=== PATIENT | male | born 1975 | race Two or more races ===

== ENCOUNTER → 2021-07-11 | Outpatient (CLI) | payer BC ==
--- NOTE | 2021-07-12 20:13 | SLEEP ---
DATE OF STUDY: 07/11/2021 HOME SLEEP STUDY Referred by Adenike Painter, nurse practitioner The patient is a 45-year-old who weighs 197 pounds with a BMI of 30.9. The patient's Bath score was 13. The patient underwent home sleep study performed by [facility]. Total recording time was 500 minutes. During the night study, the patient had 104 mixed apneas, 368 obstructive apneas, 2 central apneas and 36 hypopneas. The patient's AHI was 61 per hour. Nocturnal oximetry study revealed an average oxygen saturation was 88% with a lowest of 57%. 252 minutes were spent with oxygen saturation less than 90% and 138 minutes with saturation less than 85% and 56 minutes with saturation less than 80%. Mean heart rate 78 beats per minute. IMPRESSION: 1. Severe obstructive sleep apnea at an AHI of 61 per hour. 2. Severe nocturnal hypoxia secondary to obstructive sleep apnea. RECOMMENDATIONS: 1. The patient would benefit from in-lab CPAP titration study. 2. Once the patient is optimally treated with CPAP, then follow up in 4-6 weeks to assess compliance and to document clinical improvement. 3. Weight loss is advised. 4. Avoid [employer] depressants. 5. Cautioned regarding driving until symptoms of sleep apnea resolve with CPAP. CHRISTIN/NICHOLE/JULIAN DR: CHRISTIN/destiny TID: [id number]
== END ==
LOC: RT 16:19
PROVIDERS: ATTEND Family Medicine
DX: G47.33 Obstructive sleep apnea (adult) (pediatric) (principal); R53.83 Other fatigue
CPT/HCPCS: G0399